=== PATIENT | female | born 1980 | race Native Hawaiian/Other Pacific Islander ===

== ENCOUNTER 2019-12-13 20:29 | Emergency (ER) | payer SELFPAY ==
[2019-12-13 20:44] VITALS: BP 146/72
[2019-12-13 21:11] LABS: Basophils # (Auto) 0.1 K/mm3 (0.0-0.1); Basophils % (Auto) 0.6 % (0.0-1.8); Eosinophils # (Auto) 0.1 K/mm3 (0.0-0.4); Eosinophils % (Auto) 0.7 % (0.0-4.3); Lymphocytes % (Auto) 21.3 % (13.4-35.0); Monocytes # (Auto) 0.5 K/mm3 (0.0-0.8); Monocytes % (Auto) 5.2 % (0.0-7.3)
[2019-12-13 21:26] LABS: Bilirubin,Urine NEG (Negative); Blood,Urine LG (Negative); Color,Urine Amber (Yellow); Urobilinogen,Urine < 2.0 mg/dL (<2.0)
[2019-12-13 21:31] LABS: Hematocrit 39.8 % (30.3-42.9); Hemoglobin 13.9 gm/dl (10.1-14.3); Mean Corpuscular HGB Conc 35 % (30-34); Mean Corpuscular Volume 95 fl (79-97); Platelet Count 211 K/mm3 (140-440); Red Blood Count 4.19 M/mm3 (3.65-5.03)
[2019-12-13] MEDS ORDERED: ACETAMINOPHEN 500 MG TAB PO ONE (22:10)
[2019-12-13] MEDS ORDERED: cephALEXin 500 MG CAP PO ONE (22:10)
--- NOTE | 2019-12-13 22:46 | Emergency Department Report ---
ED General Adult HPI - General Chief complaint: Vaginal Bleeding Stated complaint: BLEEDING Time Seen by Provider: 12/13/19 21:39 Source: patient Mode of arrival: Ambulatory Limitations: Language Barrier - History of Present Illness Initial comments: PT Carolyn is a 39 y/o female who presents for Vagina bleeding x 6 days, no fver no chills no vomiting. pt tolerated, no fever or chills, pt has beed ambulatory with steady sukh]riation nissa. Location: head, face, neck Radiation: non-radiation Severity scale (0 -10): 6 Quality: aching Consistency: intermittent Improves with: none - Related Data Allergies Allergy/AdvReac Type Severity Reaction Status Date / Time No Known Allergies Allergy Unverified 12/13/19 20:38 ED Review of Systems ROS: Stated complaint: BLEEDING Other details as noted in HPI Constitutional: denies: chills, fever Eyes: denies: eye pain, eye discharge, vision change ENT: denies: ear pain, throat pain Respiratory: denies: cough, shortness of breath, wheezing Cardiovascular: denies: chest pain, palpitations Endocrine: no symptoms reported Gastrointestinal: denies: abdominal pain, nausea, diarrhea Genitourinary: denies: urgency, dysuria, discharge Musculoskeletal: denies: back pain, joint swelling, arthralgia Skin: denies: rash, lesions Neurological: denies: headache, weakness, paresthesias Psychiatric: denies: anxiety, depression Hematological/Lymphatic: denies: easy bleeding, easy bruising ED Past Medical Hx - Past Medical History Previous Medical History?: No - Surgical History Past Surgical History?: Yes Additional Surgical History: - Social History Smoking Status: Current Every Day Smoker Substance Use Type: None ED Physical Exam - General Limitations: Language Barrier ED Course Vital Signs 12/13/19 12/13/19 20:36 22:33 Temperature 99.6 F Pulse Rate 85 Respiratory 18 18 Rate Blood Pressure 146/72 O2 Sat by Pulse 99 Oximetry ED Medical Decision Making - Lab Data Result diagrams: 12/13/19 20:44 Labs 12/13/19 12/13/19 12/13/19 20:44 20:44 20:44 WBC 9.2 RBC 4.19 Hgb 13.9 Hct 39.8 MCV 95 MCH 33 H MCHC 35 H RDW 14.0 Plt Count 211 Lymph % (Auto) 21.3 [place] % (Auto) 5.2 Eos % (Auto) 0.7 Baso % (Auto) 0.6 Lymph # 2.0 [place] # 0.5 Eos # 0.1 Baso # 0.1 Seg Neutrophils % 72.2 H Seg Neutrophils # 6.7 HCG, Quant [id number] H Urine Color Urine Turbidity Urine pH Ur Specific [place] Urine Protein Urine Glucose (UA) Urine Ketones Urine Blood Urine Nitrite Urine Bilirubin Urine Urobilinogen Ur Leukocyte Esterase Urine WBC (Auto) Urine RBC (Auto) U Epithel Cells (Auto) Blood Type O POSITIVE 12/13/19 20:56 WBC RBC Hgb Hct MCV MCH MCHC RDW Plt Count Lymph % (Auto) [place] % (Auto) Eos % (Auto) Baso % (Auto) Lymph # [place] # Eos # Baso # Seg Neutrophils % Seg Neutrophils # HCG, Quant Urine Color [place] Urine Turbidity Slightly-cloudy Urine pH 7.0 Ur Specific [place] 1.008 Urine Protein 30 mg/dl Urine Glucose (UA) Neg Urine Ketones Neg Urine Blood Lg Urine Nitrite Neg Urine Bilirubin Neg Urine Urobilinogen < 2.0 Ur Leukocyte Esterase Neg Urine WBC (Auto) 8.0 H Urine RBC (Auto) 5.0 U Epithel Cells (Auto) 3.0 Blood Type - Radiology Data Radiology results: report reviewed, image reviewed Findings Reporting MD: Gabe Sow Dictation Time: December 13, 2019 22:48 Transportation Program Director: Not available Tool Tender Date: ULTRASOUND OBSTETRIC Indication: Pelvic pain, Findings: There is a single, viable intrauterine . [place]-rump length = 1.67 cm = 8 weeks, 1 day(s). heart rate is 162 beats per minute. There is a 6 mm hypoechoic area adjacent to the gestational sac which may represent a tiny implantational bleed. The right ovary measures 3.8 cm and contains a 2.2 cm cyst. The left ovary measures 2.2 cm. There is no free fluid. Impression: Single, viable intrauterine with estimated sonographic age of 8 weeks, 1 day(s). 8 mm hypoechoic focus adjacent to the gestational sac may represent a tiny implantation bleed. Signer Name: Gabe Sow MD Signed: 12/13/2019 10:48 PM Workstation Name: [id number] - Medical Decision Making us ob: Single IUP, 8 weeks ands 6 days , urine: pos for luek, WBC, plan: UTI during , plan.Keflex, tylenol, follow u with pcp iKayceen 2-3 days.1 Critical care attestation.: If time is entered above; I have spent that time in minutes in the direct care of this critically ill patient, excluding procedure time. ED Disposition Clinical Impression: Urinary tract infection during Qualifiers: Trimester: first trimester Qualified Code(s): O23.41 - Unspecified infection of urinary tract in , first trimester Disposition: TO HOME OR SELFCARE Is pt being admited?: No Does the pt Need Aspirin: No Condition: Fair Instructions: (ED), Urinary Tract Infection in Women (ED) Referrals: PRIMARY CARE,MD [Primary Care Provider] - 3-5 Days Forms: Work/School Release Form(ED) Time of Disposition: 00:36
--- NOTE | 2019-12-13 23:53 | Ultrasound Report ---
ULTRASOUND OBSTETRIC Indication: Pelvic pain, Findings: There is a single, viable intrauterine . [place]-rump length = 1.67 cm = 8 weeks, 1 day(s). heart rate is 162 beats per minute. There is a 6 mm hypoechoic area adjacent to the gestational sac which may represent a tiny implantati onal bleed. The right ovary measures 3.8 cm and contains a 2.2 cm cyst. The left ovary measures 2.2 cm. There is no free fluid. Impression: Single, viable intrauterine with estimated sonographic age of 8 weeks, 1 day(s). 8 mm hypoechoic focus adjacent to the gestational sac may represent a tiny implantation bleed. Signer Name: Gabe Sow MD Signed: 12/13/2019 11:48 PM Workstation Name: [id number]
== END 2019-12-14 00:50 | disposition home or self-care (01) ==
LOC: ED 20:29
DX: O23.41 Unspecified infection of urinary tract in pregnancy, first trimester (principal); Z3A.01 Less than 8 weeks gestation of pregnancy
CPT/HCPCS: 36415; 76801; 81001; 84702; 85025; 86900; 86901

== ENCOUNTER 2020-05-31 21:39 | Observation (INO) | payer SELFPAY ==
[2020-05-31] MEDS ORDERED: LACTATED RINGERS 1,000 ML IV ONE (23:11)
--- NOTE | 2020-06-01 00:37 | Ultrasound Report ---
ULTRASOUND OBSTETRIC LIMITED INDICATION / CLINICAL INFORMATION: PLACENTAL PLACEMENT AND RULE OUT ABRUPTION. Clinical Gestational Age (GA) in weeks, days: Unknown TECHNIQUE: Transabdominal. COMPARISON: None available. FINDINGS: HEART RATE (beats per minute): 152 AMNIOTIC FLUID INDEX (cm) = subjectively normal. Index not measured. (normal = 7-24 cm) PRESENTATION: . ADDITIONAL FINDINGS: The placenta is located posteriorly /fundal and is low lying. No evidence of abr uption. IMPRESSION: 1. No sonographic evidence for placental abruption. 2. Placenta is located posterior/fundal. Signer Name: Soila Galdamez MD Signed: 06/01/2020 12:33 AM Workstation Name: [email or web address]
[2020-06-01 00:59] LABS: Hematocrit 37.1 % (30.3-42.9); Hemoglobin 12.8 gm/dl (10.1-14.3); Mean Corpuscular HGB Conc 35 % (30-34); Mean Corpuscular Volume 89 fl (79-97); Platelet Count 198 K/mm3 (140-440); Red Blood Count 4.15 M/mm3 (3.65-5.03); Red Cell Distribution Width 13.4 % (13.2-15.2)
[2020-06-01] MEDS ORDERED: BETAMET ACET/BETAMET NA PH 6 MG/ML INJ 5 ML MDV IM ONE (05:20)
[2020-06-01] MEDS ORDERED: BETAMET ACET/BETAMET NA PH 6 MG/ML INJ 5 ML MDV IM SCH (06:00)
[2020-06-01 08:24] VITALS: BP 113/65
[2020-06-01] MEDS ORDERED: LACTATED RINGERS 1,000 ML ONE (14:02)
== END 2020-06-01 15:05 | disposition home or self-care (01) ==
LOC: TRG 21:39 → APU 21:46 → TRG 23:25 → LD 06-01 00:55
PROVIDERS: ADMIT Obstetrics & Gynecology; ATTEND Obstetrics & Gynecology
DX: O46.93 Antepartum hemorrhage, unspecified, third trimester (principal); O24.419 Gestational diabetes mellitus in pregnancy, unspecified control; Z98.891 History of uterine scar from previous surgery; Z3A.32 32 weeks gestation of pregnancy
CPT/HCPCS: 36415; 76815; 82731; 85027; 86592; 86850; 86900; 86901; 96360; 96372; G0378; J0702; J7120

== ENCOUNTER 2020-06-19 08:38 | Inpatient (IN) | payer OTHER, SELFPAY ==
[2020-06-19] MEDS ORDERED: LACTATED RINGERS 1,000 ML ONE (11:58)
[2020-06-19] MEDS ORDERED: BUPIVACAINE/PF (0.5%) 5 MG/1 ML 30 ML VIAL INFILTRATI ONE (12:06)
[2020-06-19] MEDS ORDERED: KETOROLAC 30 MG/1 ML INJ ONE (12:06)
[2020-06-19] MEDS ORDERED: dexAMETHasone 20 MG/5 ML VIAL ONE (12:06)
[2020-06-19] MEDS ORDERED: BUPIVACAINE /DEX-WATER 0.75% (2 ML) AMPULE INFILTRATI ONE (12:06)
[2020-06-19] MEDS ORDERED: ONDANSETRON 4 MG/2 ML INJ ONE (12:06)
--- NOTE | 2020-06-19 12:06 | Ultrasound Report ---
ULTRASOUND OBSTETRIC LIMITED INDICATION / CLINICAL INFORMATION: BLEEDING.. Clinical Gestational Age (GA) in weeks, days: Unknown TECHNIQUE: Transabdominal. COMPARISON: Ultrasound from 05/31/2020 FINDINGS: HEART RATE (beats per minute): 162 AMNIOTIC FLUID INDEX (cm) = subjectively normal. Index not measured. PRESENTATION: Transverse. Head to left. ADDITIONAL FINDINGS: The placenta is located posteriorly/fundal and remains low lying. No evidence of abruption. IMPRESSION: Posterior/fundal placenta remains low-lying. No sonographic evidence of placental abruption. Signer Name: Yanick Saenz MD Signed: 06/19/2020 12:01 PM Workstation Name: [id number]
[2020-06-19] MEDS ORDERED: BICITRA ORAL LIQD 30ML PO ONE (12:07)
[2020-06-19] MEDS ORDERED: FAMOTIDINE 20 MG/2 ML INJ IV ONE (12:07)
[2020-06-19] MEDS ORDERED: METOCLOPRAMIDE 10 MG/2 ML INJ IV ONE (12:07)
[2020-06-19] MEDS ORDERED: LACTATED RINGERS 1,000 ML IV SCH (12:15)
--- NOTE | 2020-06-19 12:21 | History and Physical Report ---
History of Present Illness Date of examination: 06/19/20 Date of admission: 06/19/20 12:04 Chief complaint: vaginal bleeding History of present illness: Pt with care at outside clinic h/o GDM unlcear if treated and placenta previa presents with continued gross vaninal bleeding and lower abdominal pain. Pt seen and evaluated and I advised delivery at this time due to active bleeding with the previa and possible labor. Unable to do cervical exam due to the previa. Pt expressed understnding. She is previous h/o c/s and currently by sonogram today is transverse lie. Consents signed and placed on the chart. Pt being prepped for surgery. All information given and explained to pt via her her social media editor that understands and speaks taiwanese. Pt was not sure which facility she was supposed to report to for delivery but had last delivery at this hospital that was a c/s due to breech presentation. Past History Past Surgical History: section TALENT REP History: other (see records) Family/Genetic History: other (see scannned records) Social history: . denies: no significant social history - Obstetrical History Expected Date of Delivery: 07/25/20 Actual Gestation: 34 Week(s) 6 Day(s) : 4 Para: 2 Hx # Term Pregnancies: 2 Spontaneous Abortions: 1 Number of Living Children: 2 Medications and Allergies Allergies Allergy/AdvReac Type Severity Reaction Status Date / Time No Known Allergies Allergy Verified 05/31/20 23:18 Home Medications Medication Instructions Recorded Confirmed Last Taken Type Acetaminophen 650 mg PO QID #30 capsule 12/14/19 Unknown Rx cephALEXin [Keflex] 500 mg PO Q12HR 7 Days #14 cap 12/14/19 Unknown Rx Active Meds: Active Medications Citric Acid/Sodium Citrate (Bicitra) 30 ml PO ONCE ONE Stop: 06/19/20 12:08 Famotidine (Pepcid) 20 mg IV ONCE ONE Stop: 06/19/20 12:08 Lactated Ringer's (Lactated Ringers) 1,000 mls @ 2,250 mls/hr IV PREOP ZEHRA Stop: 06/20/20 12:42 Oxytocin/Sodium Chloride (Pitocin/Ns 30 Unit/500ml) 30 units in 500 mls @ 0 mls/hr IV TITR ZEHRA; Protocol Cefazolin Sodium (Ancef/Sterile Water 2 Gm/20 Ml) 2 gm in 20 mls @ 80 mls/hr IV PREOP NR; Protocol Metoclopramide HCl (Reglan) 10 mg IV ONCE ONE Stop: 06/19/20 12:08 Review of Systems All systems: negative - Vital Signs Vital signs: Vital Signs Pulse BP Pulse Ox 105 H 148/88 97 06/19/20 09:04 06/19/20 09:04 06/19/20 09:04 Temp Pulse Resp BP Pulse Ox 98.5 F 105 H 16 122/78 97 06/19/20 09:05 06/19/20 12:11 06/19/20 09:05 06/19/20 11:57 06/19/20 12:11 - Physical Exam Lungs: Positive: Clear to auscultation, Normal air movement Abdomen: Positive: normal appearance, tenderness (along skin incisionl). Neg ative: soft, distention Genitourinary (Female): Positive: normal external genitalia, normal perenium, other (blood noted on perineum but not on padding) - Obstetrical FHR: category 1 Uterine Contraction Pattern: Irregular Uterine Contraction Intensity: Mild Results All other labs normal. Assessment and Plan - Patient Problems (1) 34 weeks gestation of Current Visit: Yes Status: Acute (2) Placenta previa antepartum in third trimester Current Visit: Yes Status: Acute (3) Vaginal bleeding Current Visit: Yes Status: Acute (4) Previous section complicating Current Visit: Yes Status: Acute Plan to address problem: -prep for cs delivery for previa with contractions possible labor -consented for repeat c/s and any other indicated procedures.
[2020-06-19] MEDS ORDERED: diphenhydrAMINE 50 MG/ML VIAL IV PRN (12:22)
[2020-06-19] MEDS ORDERED: NALOXONE 0.4 MG/1 ML INJ IV PRN ×2 (12:22→14:46)
[2020-06-19] MEDS ORDERED: HYDROmorphone 1 MG/1 ML INJ IV PRN (12:22)
[2020-06-19] MEDS ORDERED: NalbUPHINE 10 MG/1 ML INJ IV PRN (12:22)
[2020-06-19] MEDS ORDERED: PROMETHAZINE 25 MG TAB PO PRN (12:22)
[2020-06-19] MEDS ORDERED: ONDANSETRON 4 MG/2 ML INJ IV PRN (12:22)
[2020-06-19] MEDS ORDERED: PROMETHAZINE 25 MG RECT SUPP PR PRN (12:22)
--- NOTE | 2020-06-19 12:22 | Anesthesia Consultation ---
Anesthesia Consult and Med Hx Date of service: 06/19/20 - Airway Anesthetic Teeth Evaluation: Good ROM Head & Neck: Adequate Mental/Hyoid Distance: Adequate Mallampati Class: Class III Intubation Access Assessment: Probably Good - Pulmonary Exam CTA: Yes - Cardiac Exam Cardiac Exam: RRR - Pre-Operative Health Status ASA Pre-Surgery Classification: ASA2 Proposed Anesthetic Plan: Spinal Nerve Block: tap - Pulmonary Hx Smoking: No Hx Asthma: No COPD: No Hx Pneumonia: No Hx Sleep Apnea: No - Cardiovascular System Hx Hypertension: No Hx Heart Attack/AMI: No Hx Angina: No - Central Nervous System Hx Seizures: No Hx Psychiatric Problems: No - Gastrointestinal Hx Gastroesophageal Reflux Disease: No - Endocrine Hx Renal Disease: No Hx End Stage Renal Disease: No Hx Insulin Dependent Diabetes: Yes (gestational) Hx Non-Insulin Dependent Diabetes: No Hx Hypothyroidism: No Hx Hyperthyroidism: No - Hematic Hx Anemia: No Hx Sickle Cell Disease: No - Other Systems Hx Alcohol Use: No Hx Obesity: Yes
[2020-06-19 12:23] LABS: Basophils % (Auto) 0.5 % (0.0-1.8); Eosinophils % (Auto) 0.5 % (0.0-4.3); Hemoglobin 13.4 gm/dl (10.1-14.3); Lymphocytes # (Auto) 1.3 K/mm3 (1.2-5.4); Lymphocytes % (Auto) 16.1 % (13.4-35.0); Monocytes # (Auto) 0.4 K/mm3 (0.0-0.8); Monocytes % (Auto) 4.9 % (0.0-7.3)
--- NOTE | 2020-06-19 12:23 | Anesthesia Day of Surgery ---
Anesthesia Day of Surgery - Day of Surgery Patient Examined: Yes Patient H&P Reviewed: Yes Patient is NPO: Yes Beta Blockers: No Cardiac Clearance: No Pulmonary Clearance: No Rober's Test: N/A
[2020-06-19 12:36] LABS: Hematocrit 40.1 % (30.3-42.9); Mean Corpuscular HGB Conc 34 % (30-34); Mean Corpuscular Volume 88 fl (79-97); Platelet Count 195 K/mm3 (140-440); Red Blood Count 4.53 M/mm3 (3.65-5.03); Red Cell Distribution Width 13.7 % (13.2-15.2)
[2020-06-19] MEDS ORDERED: ceFAZolin/Water 2 GM/20 ML 2 GM/20 ML SYRINGE IV NR (13:00)
[2020-06-19] MEDS ORDERED: OXYTOCIN DRIP 30 UNITS/500 ML BAG IV SCH ×2 (13:00→15:00)
[2020-06-19] MEDS ORDERED: SODIUM CHLORIDE 0.9% 500 ML 500 ML ONE (13:13)
[2020-06-19] MEDS ORDERED: WATER FOR IRRIG STERILE 1,500 ML BOTTLE IR ONE (13:30)
[2020-06-19] MEDS ORDERED: SODIUM CHLORIDE 0.9% IRR 1,500 ML BOTTLE IR ONE (13:30)
[2020-06-19] MEDS ORDERED: ePHEDrine SULFATE 50 MG/1 ML INJ ONE (13:57)
[2020-06-19] MEDS ORDERED: PHENYLEPHRINE/NS 1,000 MCG/10 ML SYRINGE (OR USE) IV ONE (13:57)
[2020-06-19] MEDS ORDERED: WITCH HAZEL/ GLYCERIN PAD TP PRN (14:46)
[2020-06-19] MEDS ORDERED: LANOLIN/ZINC/DIMETHICONE (LANSINOH) 7 GM TP PRN (14:46)
--- NOTE | 2020-06-19 14:55 | Operative Report ---
Operative Report Operative Report: Date of procedure: 06/19/2020 Pre-operative diagnosis: 34-6/7 weeks gestation Maternal obesity Gestational diabetes contractions Complete placenta previa Continued vaginal bleeding Post-operative diagnosis: Same Procedure name(s): Repeat low transverse section via Pfannenstiel skin incision Vacuum assisted delivery Surgeon: Dr. Story Credit Administration Officer: ANAMARIA Anesthesia: Spinal EBL: 1200 mL Urine output: 100 mL of clear urine out at end of procedure Fluids: 1200 mL Findings: Liveborn male infant initially transverse lie converted to vertex weight 6 pounds 13 ounces Apgars of 7 and 8 at 1 and 5 minutes Anterior placenta Previa noted Grossly normal fallopian tubes and ovaries bilaterally Well-developed lower uterine segment Indications: Patient presents to triage complaining of gross vaginal bleeding. Vaginal bleeding was noted on more than one occasion while being evaluated. Patient has a history of complete placenta previa with care at outside facility. Patient was also noted to have some lower abdominal pain however it was unclear if patient was laboring due to being unable to check the cervix due to the previa. Decision was made at this time to proceed with repeat section. All risks benefits and alternatives were discussed with the patient. Consents were signed and placed on the chart. Procedure: Patient was taking to the operating room. Patient was then prepped and draped in sterile fashion after anesthesia was found to be adequate. A low transverse skin incision was made with the scalpel through previous incisional scar and carried down to the underlying layer of fascia with the Bovie. The fascia was then incised in the midline and this incision was extended bilaterally with the Bovie. The superior aspect of the fascia was grasped with Kamala clamps tented upward and dissected off of the anterior rectus muscles with the scalpel. In similar fashion the inferior aspect of the fascia was grasped with Kamala clamps tented upward and dissected off of the anterior rectus muscles. The rectus muscles were then bluntly divided in the midline. The peritoneum was identified and entered into sharply. The Mathew retractor was placed. A lower transverse uterine incision was made with the scalpel and extended bilaterally with the bandage blunt dissection. Artificial rupture of membranes was performed yielding [clear amniotic fluid]. was noted to be an transverse lie back up with had at maternal left. Infant was converted to vertex presentation prior to artificial rupture of membranes via internal cephalic version. Vacuum was applied x1 with care not to place over the anterior fontanelle. With 1 pull of the vacuum the 's head delivered. The infant's head was then delivered atraumatically. The anterior shoulder and rest of infant delivered without difficulty. The umbilical cord was clamped x2. The cord was cut. The infant was then placed in sterile bassinet. [The cord blood was collected]. The placenta was manually extracted in its entirety. The uterus was exteriorized and cleared of all clots and debris. The uterine incision was closed using 0 Vicryl in a running locking fashion. [ A second imbricating layer of the same suture was then created.] The posterior cul-de-sac was copiously irrigated. The uterus was returned to the abdomen. The gutters were also irrigated. The Mathew retractor was removed from the abdomen as well as all other instruments were removed from the abdomen. The anterior rectus muscles were reapproximated using 3-0 Vicryl. The anterior rectus fascia was reapproximated using 0 Vicryl in a running fashion. The subcuticular fat was reapproximated using 2-0 Vicryl in a running fashion. The skin was reapproximated with 4-0 Monocryl in a subcuticular stitch. The patient tolerated the procedure well. Sponge lap and needle counts were all correct x3. Patient was taken to the recovery room awake and in stable condition.
[2020-06-19] MEDS ORDERED: IBUPROFEN 600 MG TAB PO PRN (14:58)
--- NOTE | 2020-06-19 15:11 | Progress Note ---
Spinal Anesthesia Block - Spinal Anesthesia Block Start Time: 13:15 Stop Time: 13:30 Performed by:: TOMASA BERMAN Procedure: Spinal anesthesia block is being performed for [C/S]. H&P, labs have been reviewed. Patient's questions and concerns have been answered. Informed consent has been performed. Timeout has was performed. Patient in sitting position on side of bed. Sterile prep and drape was performed. 3 mL 1% lidocaine skin wheal at L [3]-L [4]. Needle introducer advanced. 25-gauge spinal needle advanced, [+] CSF [-] blood. [Marcaine 10.5mg and Precedex 5mcg] Spinal dose was given. All needles removed. Patient tolerated procedure well.
--- NOTE | 2020-06-19 15:11 | Progress Note ---
Regional Anesthesia Block - Regional Anesthesia Block Start Time: 14:49 Stop Time: 14:55 Performed By:: TOMASA BERMAN Procedure: Patient consented for TAP block for post surgical pain management. Patient identified, monitors placed, and time out performed. Mid axillary TAP identified bilaterally via ultrasound. Skin prepped bilaterally with [chlorhexidine] and [20g stimuplex] needle advanced to the TAP. 30ml [Marcaine 0.25% with 25mcg Pre cedex and Decadron 4mg] injected under ultrasound guidance on the [left] side. 30ml [Marcaine 0.25% with 25mcg Precedex and Decadron 4mg] injected under ultrasound guidance on the [right] side.
[2020-06-19] MEDS: ceFAZolin/NS 1 GM/50 ML 1 GM/50 ML BAG IV SCH (18:14)
[2020-06-20] MEDS: KETOROLAC 30 MG/1 ML INJ IV PRN ×2 (00:36→05:37)
[2020-06-20] MEDS ORDERED: D5W/LACTATED RINGERS 1,000 ML IV SCH (01:00)
[2020-06-20] MEDS: ceFAZolin/NS 1 GM/50 ML 1 GM/50 ML BAG IV SCH (01:51)
[2020-06-20 06:19] LABS: Hematocrit 29.1 % (30.3-42.9); Hemoglobin 9.8 gm/dl (10.1-14.3)
--- NOTE | 2020-06-20 07:27 | Progress Note ---
Assessment and Plan - Patient Problems (1) 34 weeks gestation of Current Visit: Yes Status: Acute (2) Placenta previa antepartum in third trimester Current Visit: Yes Status: Acute (3) Vaginal bleeding Current Visit: Yes Status: Acute (4) Previous section complicating Current Visit: Yes Status: Acute Subjective - Subjective Interval history: Pt with care at outside clinic h/o GDM unlcear if treated and placenta previa presents with continued gross vaninal bleeding and lower abdominal pain. Pt seen and evaluated and I advised delivery at this time due to active bleeding with the previa and possible labor. Unable to do cervical exam due to the previa. Pt expressed understnding. She is previous h/o c/s and currently by sonogram today is transverse lie. Consents signed and placed on the chart. Pt being prepped for surgery. All information given and explained to pt via her her editor newspaper that understands and speaks [place]. Pt was not sure which facility she was supposed to report to for delivery but had last delivery at this hospital that was a c/s due to breech presentation. Objective - Vital Signs Vital Signs: Vital Signs - 12hr 06/19/20 06/20/20 06/20/20 21:37 01:43 05:46 Temperature 98.3 F 97.9 F 97.7 F Pulse Rate 79 83 87 Respiratory 18 18 18 Rate Blood Pressure 114/68 103/60 113/67 O2 Sat by Pulse 96 96 98 Oximetry - Labs Labs: Abnormal Labs 06/19/20 06/20/20 11:55 05:47 Hgb 9.8 L D Hct 29.1 L D Seg Neutrophils % 78.0 H Laboratory Results - last 24 hr 06/19/20 06/19/20 06/19/20 11:55 11:55 11:55 WBC 8.2 RBC 4.53 Hgb 13.4 Hct 40.1 MCV 88 MCH 30 MCHC 34 RDW 13.7 Plt Count 195 Lymph % (Auto) 16.1 [place] % (Auto) 4.9 Eos % (Auto) 0.5 Baso % (Auto) 0.5 Lymph # (Auto) 1.3 [place] # (Auto) 0.4 Eos # (Auto) 0.0 Baso # (Auto) 0.0 Seg Neutrophils % 78.0 H Seg Neutrophils # 6.4 POC Glucose Syphilis IgG Antibody Nonreactive Blood Type O POSITIVE Antibody Screen Negative 06/19/20 06/20/20 13:07 05:47 WBC RBC Hgb 9.8 L D Hct 29.1 L D MCV MCH MCHC RDW Plt Count Lymph % (Auto) [place] % (Auto) Eos % (Auto) Baso % (Auto) Lymph # (Auto) [place] # (Auto) Eos # (Auto) Baso # (Auto) Seg Neutrophils % Seg Neutrophils # POC Glucose 95 Syphilis IgG Antibody Blood Type Antibody Screen
[2020-06-20] MEDS ORDERED: IBUPROFEN 600 MG TAB PO PRN (08:00)
--- NOTE | 2020-06-20 08:08 | Progress Note ---
Assessment and Plan - Patient Problems (1) 34 weeks gestation of Current Visit: Yes Status: Acute (2) Placenta previa antepartum in third trimester Current Visit: Yes Status: Acute (3) Vaginal bleeding Current Visit: Yes Status: Acute (4) Previous section complicating Current Visit: Yes Status: Acute (5) S/P repeat low transverse Current Visit: Yes Status: Acute Plan to address problem: -routine post op care -routine pp care Subjective - Subjective Date of service: 06/20/20 Principal diagnosis: POD #1 s/p RTLCS due to complete previa wthi hemorrhage at 34.6 week Interval history: Pt doing well. Pain is well controlled. She is sitting up in chair w/o c/o pain. States she tolerated her diet last night. Regular diet being served for breakfast this am. Patient reports: appetite normal, voiding normally, pain well controlled, ambulating normally, no dizzy ambulation : doing well, in NICU Objective - Vital Signs Latest vital signs: Vital Signs Temp Pulse Resp BP BP Pulse Ox 06/20/20 05:46 97.7 F 87 18 113/67 98 06/20/20 01:43 97.9 F 83 18 103/60 96 06/19/20 21:37 98.3 F 79 18 114/68 96 06/19/20 16:30 98.3 F 97 H 22 110/68 06/19/20 16:15 98.2 F 06/19/20 16:00 76 22 138/80 97 06/19/20 15:50 73 20 137/84 97 06/19/20 15:46 68 14 157/86 97 06/19/20 15:31 70 20 164/56 97 06/19/20 15:20 73 22 157/90 97 06/19/20 15:16 70 23 147/41 99 06/19/20 15:11 69 20 143/42 99 06/19/20 15:05 67 22 125/41 99 06/19/20 15:00 67 15 113/51 100 06/19/20 14:57 72 14 65/26 100 06/19/20 14:52 80 24 104/48 100 06/19/20 14:45 98.4 F 90/72 06/19/20 12:16 109 H 98 06/19/20 12:11 105 H 97 06/19/20 12:06 116 H 98 06/19/20 12:01 111 H 98 06/19/20 11:57 108 H 122/78 06/19/20 11:56 113 H 97 06/19/20 11:51 95 H 97 06/19/20 11:46 93 H 97 06/19/20 11:41 96 H 97 06/19/20 11:36 58 L 97 06/19/20 11:29 96 H 97 06/19/20 11:26 106 H 118/78 06/19/20 11:24 95 H 97 06/19/20 11:19 98 H 98 06/19/20 11:14 107 H 98 06/19/20 11:09 88 97 06/19/20 11:04 90 98 06/19/20 10:59 96 H 97 06/19/20 10:57 88 109/68 06/19/20 10:54 86 96 06/19/20 10:49 80 97 06/19/20 10:44 102 H 96 06/19/20 10:39 79 97 06/19/20 10:34 99 H 96 06/19/20 10:29 87 96 06/19/20 10:27 89 125/77 06/19/20 10:24 92 H 97 06/19/20 10:19 89 96 06/19/20 10:14 86 97 06/19/20 10:09 89 96 06/19/20 10:04 110 H 97 06/19/20 09:59 100 H 97 06/19/20 09:58 92 H 118/74 06/19/20 09:54 102 H 97 06/19/20 09:49 101 H 97 06/19/20 09:44 96 H 97 06/19/20 09:39 114 H 97 06/19/20 09:34 103 H 98 06/19/20 09:29 105 H 97 06/19/20 09:24 98 H 98 06/19/20 09:19 105 H 97 06/19/20 09:14 116 H 97 06/19/20 09:09 101 H 97 06/19/20 09:05 98.5 F 99 H 16 148/88 99 06/19/20 09:04 105 H 148/88 97 Intake and Output 06/19/20 06/20/20 06/20/20 22:59 06:59 14:59 Intake Total 50 240 Output Total 160 650 Balance -110 -410 Intake: IV 50 ANCEF/NS 1 GM/50 ML 1 gm 50 In 50 ml @ 100 mls/hr IV Q8H [facility] Rx#:[id number] Intake, Free Water 240 Output: Urine 160 650 Indwelling Catheter 650 Uretheral ([place]) 60 Other: Total, Output Amount 350 - Exam Breasts: Present: tender Cardiovascular: Present: Normal S1 Lungs: Present: Clear to auscultation, Normal air movement Abdomen: Present: normal appearance, soft, normal bowel sounds. Absent: distention, tenderness, guarding Deep Tendon Reflex Grade: Normal +2 Incision: Present: normal, dry, intact, dressed - Labs Labs: Abnormal lab results 06/19/20 06/20/20 Range/Units 11:55 05:47 Hgb 9.8 L D (10.1-14.3) gm/dl Hct 29.1 L D (30.3-42.9) % Seg Neutrophils % 78.0 H (40.0-70.0) %
--- NOTE | 2020-06-20 08:47 | Post Anesthesia Evaluation ---
- Post Anesthesia Evaluation Patient Participated: Yes Airway Patent: Yes Stable Respiratory Function: Yes Nausea/Vomiting: No Temp > 96.8F: Yes Pain Manageable: Yes Adequeate Hydration: Yes Anesthesia Complications: No Block Receding Appropriately: Yes Patient on Ventilator: No
[2020-06-20] MEDS: HYDROcodone/ACETAMINOPHEN 5-325 MG TAB PO PRN ×2 (09:17→19:31)
[2020-06-20] MEDS: FERROUS SULFATE 325 MG TAB PO SCH (09:17)
[2020-06-20] MEDS ORDERED: DIPHtheria,PERTUSSIS(ACELL),TETANUS VACCINE/PF 0.5 ML VIAL IM ONE (14:47)
[2020-06-20] MEDS: IBUPROFEN 800 MG TAB PO PRN (14:55)
[2020-06-21] MEDS: IBUPROFEN 800 MG TAB PO PRN ×2 (05:53→16:55)
[2020-06-21] MEDS: FERROUS SULFATE 325 MG TAB PO SCH (10:08)
[2020-06-21] MEDS: HYDROcodone/ACETAMINOPHEN 5-325 MG TAB PO PRN (10:08)
--- NOTE | 2020-06-21 11:23 | Progress Note ---
Assessment and Plan - Patient Problems (1) S/P repeat low transverse Current Visit: Yes Status: Acute Plan to address problem: Patient is doing well with good pain control. Postoperative day #2. Patient without nausea vomiting. Patient tolerating advancing diet well Patient without fever. . We will continue routine postoperative care. is doing well. Will continue routine post operative care. Patient's postoperative hematocrit is 29.1%. Patient without orthostatic symptoms. Patient desires discharge tomorrow due to infant still in the intensive care nursery. Subjective - Subjective Date of service: 06/21/20 Principal diagnosis: POD #2 s/p RTLCS due to complete previa wthi hemorrhage at 34.6 week Interval history: Visit done with help of medical translation line Patient reports: appetite normal, voiding normally, pain well controlled, flatus, ambulating normally : in NICU, bottle feeding Objective - Vital Signs Latest vital signs: Vital Signs Temp Pulse Resp BP BP Pulse Ox 06/21/20 10:08 18 06/21/20 08:15 98.4 F 75 18 103/63 96 06/21/20 00:29 98.2 F 77 18 110/65 96 06/20/20 18:12 98.2 F 80 18 95/55 95 Intake and Output 06/20/20 06/21/20 06/21/20 22:59 06:59 14:59 Intake Total 520 120 240 Output Total 300 Balance 220 120 240 Intake: Oral 420 120 240 Intake, Free Water 100 Output: Urine 300 Void 300 Other: Total, Intake Amount 120 120 240 Total, Output Amount 300 # Voids Void 3 1 - Exam Breasts: Present: deferred Cardiovascular: Present: Regular rate Lungs: Present: Normal air movement Abdomen: Present: normal appearance, soft Uterus: Present: normal, firm, fundal height below umbilicus Extremities: Present: edema Incision: Present: dry, intact Comments: Steri-strips in place
[2020-06-22] MEDS ORDERED: MAGNESIUM HYDROXIDE (MOM) ORAL LIQD UDC PO ONE (06:00)
[2020-06-22] MEDS: HYDROcodone/ACETAMINOPHEN 5-325 MG TAB PO PRN (06:19)
[2020-06-22] MEDS: FERROUS SULFATE 325 MG TAB PO SCH (10:19)
--- NOTE | 2020-06-22 10:58 | Discharge Summary ---
Providers - Providers Date of Admission: 06/19/20 12:04 Date of discharge: 06/22/20 Attending physician: GABO ENRIQUEZ Primary care physician: [facility]ESSION[facility] Hospitalization Reason for admission: IUP - , vaginal bleeding Delivery: Procedure: section, repeat low transverse Episiotomy: none Laceration: none Incision: dry, intact Other procedures: none complications: none Discharge diagnosis: delivery baby: male Hospital course: Please see history and physical for more details. Patient was admitted for vaginal bleeding read labor placenta previa and previous section. A repeat section was performed. Patient underwent the procedure without complications. Her post operative course was benign she was afebrile throughout. Patient postoperative day 1 hematocrit was in an acceptable range. Patient had no orthostatic symptoms. Patient was tolerating regular diet and voiding without difficulty at time of discharge. Patient incision was healing well without evidence of infection. Patient plans to breast-feed and is unsure about her control plans. Patient's is still in the intensive care unit at time of discharge. Condition at discharge: Good Disposition: [id number] TO HOME OR SELFCARE - Discharge Diagnoses (1) S/P repeat low transverse Status: Acute (2) 34 weeks gestation of Status: Acute (3) Placenta previa antepartum in third trimester Status: Acute (4) Previous section complicating Status: Acute (5) Vaginal bleeding Status: Resolved Plan - Discharge Medications Prescriptions: Docusate Sodium [Colace] 100 mg PO BID PRN #60 capsule PRN Reason: Constipation RX: Ferrous Sulfate [Feosol 325 MG tab] 325 mg PO QDAY #60 tablet RX: Ibuprofen [Motrin 800 MG tab] 800 mg PO Q8HR PRN #30 tablet PRN Reason: Pain, Moderate (4-6) oxyCODONE /ACETAMINOPHEN [Percocet 5/325] 1 tab PO Q4HR #30 tab - Provider Discharge Summary Activity: routine, no sex for 6 weeks, no heavy lifting 4 weeks, no strenuous exercise Diet: routine Instructions: routine Additional instructions: [] Smoking cessation referral if applicable(refer to patient education folder for contact #) [] Refer to [facility] Booklet Call your doctor immediately for: * Fever > 100.5 * Heavy vaginal bleeding ( >1 pad per hour) * Severe persistent headache * Shortness of breath * Reddened, hot, painful area to leg or breast * Drainage or odor from incision. * Keep incision clean and dry at all times and follow doctor's instructions regarding bathing/showering Patient instructions were given yesterday through medical reviewer line. Patient the day states they have no further questions. Patient had been seen at a clinic throughout her and desires to return to the clinic for her care. Stressed to patient desired follow-up in office due to surgery performed. They were given our office information to call to make an appointment. - Follow up plan Follow up: PRIMARY CAREMD [Primary Care Provider] - 7 Days
[2020-06-22] MEDS: IBUPROFEN 800 MG TAB PO PRN (12:07)
[2020-06-22 14:13] VITALS: BP 121/81
== END 2020-06-22 13:55 | disposition home or self-care (01) | DRG 786 ==
LOC: TRG 08:38 → APU 08:41 → TRG 12:03 → APU 12:04 → OB 16:46
PROVIDERS: ADMIT Obstetrics & Gynecology; ATTEND Obstetrics & Gynecology
PROC: 10D00Z1 Extraction of Products of Conception, Low, Open Approach (ICD-10-PCS; principal; 2020-06-19)
PROC: 3E0234Z Introduction of Serum, Toxoid and Vaccine into Muscle, Percutaneous Approach (ICD-10-PCS; 2020-06-20)
DX: O60.14X0 Preterm labor third trimester with preterm delivery third trimester, not applicable or unspecified (principal); O44.13 Complete placenta previa with hemorrhage, third trimester; Z3A.34 34 weeks gestation of pregnancy; Z37.0 Single live birth; O34.211 Maternal care for low transverse scar from previous cesarean delivery; O99.214 Obesity complicating childbirth; E66.9 Obesity, unspecified; O24.429 Gestational diabetes mellitus in childbirth, unspecified control; Z20.828 Contact with and (suspected) exposure to other viral communicable diseases; Z23 Encounter for immunization
CPT/HCPCS: 36415; 76815; 82962; 85014; 85018; 85025; 86592; 86850; 86900; 86901; 88307; G0378; J0690; J1100; J1885; J2370; J2405; J2765; J3490; J7040; J7120; J7121; U0003